=== PATIENT | female | born 1990 | race Caucasian/White ===

== ENCOUNTER → 2016-12-03 | Outpatient (CLI) | payer BC | LOC: MC.RAD 08:15 | DX: N63.13 Unspecified lump in the right breast, lower outer quadrant (principal); N63.11 Unspecified lump in the right breast, upper outer quadrant ==

== ENCOUNTER → 2017-06-24 | Outpatient (CLI) | payer BC | LOC: MC.RAD 07:30 | DX: D24.1 Benign neoplasm of right breast (principal) ==